=== PATIENT | male | born 1930 | race Caucasian/White ===

== ENCOUNTER 2019-04-04 14:42 | Inpatient (IN) | payer MEDICARE, OTHER ==
[2019-04-04 15:06] VITALS: BMI 37.0
--- NOTE | 2019-04-04 18:45 | History and Physical Report ---
History of Present Illnes - History of Present Illness Reason for Visit: Abdominal pain and acute pancreatitis History of Present Illness: This is an 89 year old male who is admitted to for skilled stay at [place]. He was admitted to [facility] on 03/30/19 due to acute abdominal pain and p ancreatitis with concern for a biliary source. There was concern for cholecystitis, and general Surgery (Dr. Arce) was consulted to see if emergent or non emergent cholecystectomy was indicated. She felt that he would likely need cholecystectomy, however not during that hospitalization and he is to follow up in her office about six weeks after discharge for evaluation for possible cholecystectomy. CT abdomen showed peripancreatic stranding, as well as lab work showing an elevated lipase (<500) and amylase (<2000). EGD showed gastritic/esophagitis. He was treated conservatively, and his bowel was rested. His diet was able to be slowly increased, although he was very unsteady on his feet, and he was transferred to our facility for care on discharge for skilled care with a view t meghna returning to home with his on discharge. - Past Medical History Cardiac: CAD, HTN, Hyperlipidemia CHEMISTRY ASSOCIATE: CVA (hemorrhagic), Peripheral neuropathy Gastrointestinal: GERD Psych: Anxiety, Depression Musculoskeletal: Osteoarthritis Renal/: Chronic renal insuff Endocrine: Diabetes, Hypothyroidism, obesity - Past Surgical History Past Surgical History: Other (PCI with stent, cardiac pacemaker placement, TKR bilateral, EGD, colonoscopy) - Past Social History Smoke: No Alcohol: None Drugs: None Lives: With Family - Health Maintenance Health Maintenance: Cholesterol Influenza Vaccine: Current for this Influenza Season Pneumonia Vaccine: Yes Resuscitation Status: Resusciation Status Resuscitation Status Full Code - Unable to Obtain History Unable to Obtain: No Review of Systems - Review of Systems Constitutional: Weakness, Malaise. negative: Fever, Chills Eyes: negative: pain, vision change ENT: negative: Ear Pain, Ear Discharge Respiratory: negative: Cough, Dry Cardiovascular: negative: Chest Pain Gastrointestinal: Abdominal Pain (improved). negative: Nausea, Vomiting Genitourinary: negative: Dysuria Musculoskeletal: negative: Neck Pain, Shoulder Pain, Arm Pain Skin: negative: Rash Neurological: Weakness, Incoordination, Change in Speech, Confusion - Medications/Allergies Allergies/Adverse Reactions: Allergies Allergy/AdvReac Type Severity Reaction Status Date / Time amlodipine Allergy Verified 04/04/19 14:45 Home Medications: Home Medications Acetaminophen [Tylenol] 650 mg PO Q4 PRN 04/04/19 Atorvastatin Calcium 40 mg PO DAILY 04/04/19 Bisacodyl 10 mg DAILY PRN 04/04/19 Bisacodyl [Laxative] 10 mg PO DAILY PRN 04/04/19 Buspirone HCl [Buspar] 10 mg PO BID 04/04/19 Carvedilol [Coreg] 3.125 mg PO BID 04/04/19 Fluticasone Propionate [Flonase Nasal [place]] 1 spray NS DAILY 04/04/19 Ipratropium/Albuterol Sulfate [Iprat-Albut 0.5-3(2.5) mg/3 ml] 1 vial NEB Q6 PRN 04/04/19 Pramipexole Di-HCl [Pramipexole ER] 3 mg PO HS 04/04/19 Tamsulosin HCl [Flomax] 0.4 mg PO DAILY 04/04/19 clonazePAM [Klonopin] 0.5 mg PO TID PRN 04/04/19 Exam - Exam Vital Signs: Vital Signs (72 hours) 04/04/19 04/04/19 14:44 14:58 Temperature 98 F 98 F Pulse Rate [ 74 74 Left] Respiratory 22 22 Rate Blood Pressure 132/70 132/70 [Left Arm] O2 Sat by Pulse 96 96 Oximetry General: Oriented to Person, Obese HEENT: Atraumatic, PERRLA Neck: No: Stridor, Rigidity Lungs: Clear to auscultation, Decreased Air Movement Cardiovascular: Irregularly Irregular, Atrial Fib Murmur: Systolic Murmur Heart Murmur Grade: II Abdomen: Normal bowel sounds, Soft, No tenderness, No hepatospenomegaly Genitourinary: No: Other Male Genitourinary: No: Other Female Genitourinary: No: Other Integumentary: Normal, Warm, Dry Extremities: No clubbing, No cyanosis, Other (trace ankle edema) Neurological: Generalized Weakness Psych/Mental Status: Mental status NL (at baseline) Assessment/Plan - Assessment/Plan (1) Acute pancreatitis Status: Acute Current Visit: Yes Assessment: Advance diet (2) History of CVA (cerebrovascular accident) Status: Acute Current Visit: Yes Assessment: Remote, continue off of anticoagulation due to hemorrhagic nature despite atrial fibrillation Follows with Dr. Schwartz (3) Anxiety Status: Acute Current Visit: Yes Assessment: Continue clonazepam (4) Chronic renal insufficiency, stage II (mild) Status: Acute Current Visit: Yes Assessment: Check CMP in am (5) Diabetes mellitus Status: Acute Current Visit: Yes Qualifiers: Diabetes mellitus type: type 2 Diabetes mellitus joint terminal attack controller insulin use: without fpc use Diabetes mellitus complication status: with neurologic complications Diabetes mellitus complication detail: with unspecified neuropathy Qualified Code(s): E11.40 - Type 2 diabetes mellitus with diabetic neuropathy, unspecified Assessment: JM, ACHS accuchbetty (6) CAD (coronary artery disease) Status: Acute Current Visit: Yes Qualifiers: Coronary Disease-Associated Artery/Lesion type: [place] artery [place] vs. transplanted heart: [place] heart Associated angina: without angina Qualified Code(s): I25.10 - Atherosclerotic heart disease of [place] coronary artery without angina pectoris (7) GERD (gastroesophageal reflux disease) Status: Acute Current Visit: Yes Assessment: Continue PPI (8) Debility Status: Acute Current Visit: Yes Assessment: PT/OT to evaluate and treat (9) Hypertension Status: Acute Current Visit: Yes Qualifiers: Hypertension type: essential hypertension Qualified Code(s): I10 - Essential (primary) hypertension VTE Assessment - RISK FACTOR SCORE VTE RISK FACTOR SCORES: AGE OVER 60 YEARS - RISK VTE MODERATE RISK: SCORE OF 2 (RISK PROXIMAL DVT 2-4%) PROPHYAXIS NEEDED (CRYS funes, pharmacologic anticoagulation contraindicated due to hemorrhagic CVA)
[2019-04-04] MEDS: PRAMIPEXOLE DI-HCL 0.5 MG TABLET PO SCH (20:49)
[2019-04-04] MEDS: busPIRone HCL 5 MG TABLET PO SCH (20:49)
[2019-04-04] MEDS: levETIRAcetam 500 MG TABLET PO SCH (20:50)
[2019-04-04] MEDS: ATORVASTATIN CALCIUM 20 MG TABLET PO SCH (20:50)
[2019-04-04] MEDS: CARVEDILOL 6.25 MG TABLET PO SCH (20:50)
[2019-04-04] MEDS: clonazePAM 0.5 MG TABLET PO SCH (20:50)
[2019-04-04] MEDS: OPTH OU SCH (20:51)
[2019-04-04] MEDS: TIMOLOL MALEATE 0.5% OU SCH (20:51)
[2019-04-04] MEDS: ACETAMINOPHEN 325 MG TABLET PO PRN (20:51)
[2019-04-04] MEDS: LATANOPROST 0.005% OPTH DROP OU SCH (20:52)
[2019-04-04] MEDS: IPRATROPIUM/ALBUTEROL SULFATE 3 ML AMPUL.NEB NEB SCH (21:21)
[2019-04-05] MEDS: LEVOTHYROXINE SODIUM 50 MCG TABLET PO SCH (05:42)
[2019-04-05] MEDS: ACETAMINOPHEN 325 MG TABLET PO PRN ×2 (05:42→20:40)
[2019-04-05] MEDS: PANTOPRAZOLE SODIUM 40 MG TABLET.DR PO SCH (05:42)
[2019-04-05 06:52] LABS: BASOPHILS % 0.4 % (0.0-1.5); NEUTROPHILS # 4.1 # k/uL (1.4-7.7)
[2019-04-05 06:53] LABS: eGFR (Non-African) > 60
[2019-04-05] MEDS ORDERED: TAMSULOSIN HCL 0.4 MG CAP.ER.24H PO ONE (08:18)
[2019-04-05] MEDS ORDERED: IPRATROPIUM/ALBUTEROL SULFATE 3 ML AMPUL.NEB NEB ONE (08:18)
[2019-04-05] MEDS ORDERED: busPIRone HCL 5 MG TABLET PO ONE (08:19)
[2019-04-05] MEDS ORDERED: clonazePAM 0.5 MG TABLET PO ONE (08:19)
[2019-04-05] MEDS ORDERED: levETIRAcetam 500 MG TABLET PO ONE (08:19)
[2019-04-05] MEDS ORDERED: CARVEDILOL 6.25 MG TABLET PO ONE (08:20)
[2019-04-05] MEDS ORDERED: BETHANECHOL CHLORIDE 5 MG TABLET PO ONE (08:20)
[2019-04-05] MEDS: FLUTICASONE PROPIONATE 120 SPRAY/16 GR BOTTLE IEN SCH (08:51)
[2019-04-05] MEDS: busPIRone HCL 5 MG TABLET PO SCH ×2 (08:52→20:39)
[2019-04-05] MEDS: clonazePAM 0.5 MG TABLET PO SCH ×3 (08:52→17:35)
[2019-04-05] MEDS: levETIRAcetam 500 MG TABLET PO SCH ×3 (08:52→17:35)
[2019-04-05] MEDS: ASPIRIN EC 81 MG TABLET.DR PO SCH (08:53)
[2019-04-05] MEDS: TAMSULOSIN HCL 0.4 MG CAP.ER.24H PO SCH ×2 (08:53→20:39)
[2019-04-05] MEDS: CARVEDILOL 6.25 MG TABLET PO SCH ×2 (08:54→17:35)
[2019-04-05] MEDS ORDERED: TAMSULOSIN HCL 0.4 MG CAP.ER.24H PO SCH (09:00)
[2019-04-05] MEDS: IPRATROPIUM/ALBUTEROL SULFATE 3 ML AMPUL.NEB NEB SCH ×4 (09:00→20:40)
[2019-04-05] MEDS: BISACODYL 5 MG TABLET.DR PO SCH (10:51)
[2019-04-05] MEDS ORDERED: INSULIN ASPART 100 UNIT/ML INSULN.PEN SQ SCH (12:00)
[2019-04-05] MEDS: INSULIN ASPART 100 UNIT/ML INSULN.PEN SQ SCH ×2 (16:44→20:40)
[2019-04-05] MEDS: PRAMIPEXOLE DI-HCL 0.5 MG TABLET PO SCH (20:39)
[2019-04-05] MEDS: ATORVASTATIN CALCIUM 20 MG TABLET PO SCH (20:39)
[2019-04-05] MEDS: OPTH OU SCH (20:40)
[2019-04-05] MEDS: TIMOLOL MALEATE 0.5% OU SCH (20:40)
[2019-04-05] MEDS: LATANOPROST 0.005% OPTH DROP OU SCH (20:40)
[2019-04-06] MEDS: ACETAMINOPHEN 325 MG TABLET PO PRN ×2 (00:20→07:42)
[2019-04-06] MEDS: PANTOPRAZOLE SODIUM 40 MG TABLET.DR PO SCH (05:22)
[2019-04-06] MEDS: LEVOTHYROXINE SODIUM 50 MCG TABLET PO SCH (05:22)
[2019-04-06] MEDS: INSULIN ASPART 100 UNIT/ML INSULN.PEN SQ SCH ×4 (06:21→20:40)
[2019-04-06] MEDS: busPIRone HCL 5 MG TABLET PO SCH ×2 (08:34→20:27)
[2019-04-06] MEDS: BISACODYL 5 MG TABLET.DR PO SCH (08:34)
[2019-04-06] MEDS: ASPIRIN EC 81 MG TABLET.DR PO SCH (08:34)
[2019-04-06] MEDS: CARVEDILOL 6.25 MG TABLET PO SCH ×2 (08:34→17:27)
[2019-04-06] MEDS: TAMSULOSIN HCL 0.4 MG CAP.ER.24H PO SCH ×2 (08:35→20:28)
[2019-04-06] MEDS: clonazePAM 0.5 MG TABLET PO SCH ×3 (08:35→21:19)
[2019-04-06] MEDS: levETIRAcetam 500 MG TABLET PO SCH ×3 (08:35→17:27)
[2019-04-06] MEDS: FLUTICASONE PROPIONATE 120 SPRAY/16 GR BOTTLE IEN SCH (08:35)
[2019-04-06] MEDS: IPRATROPIUM/ALBUTEROL SULFATE 3 ML AMPUL.NEB NEB SCH ×4 (09:00→21:15)
[2019-04-06] MEDS: ATORVASTATIN CALCIUM 20 MG TABLET PO SCH (20:28)
[2019-04-06] MEDS: PRAMIPEXOLE DI-HCL 0.5 MG TABLET PO SCH (20:29)
[2019-04-06] MEDS: TIMOLOL MALEATE 0.5% OU SCH (20:31)
[2019-04-06] MEDS: LATANOPROST 0.005% OPTH DROP OU SCH (20:31)
[2019-04-06] MEDS: OPTH OU SCH (20:31)
[2019-04-07] MEDS: LEVOTHYROXINE SODIUM 50 MCG TABLET PO SCH (05:52)
[2019-04-07] MEDS: PANTOPRAZOLE SODIUM 40 MG TABLET.DR PO SCH (05:53)
[2019-04-07] MEDS: INSULIN ASPART 100 UNIT/ML INSULN.PEN SQ SCH ×4 (08:23→21:42)
[2019-04-07] MEDS: busPIRone HCL 5 MG TABLET PO SCH ×2 (08:25→21:40)
[2019-04-07] MEDS: BISACODYL 5 MG TABLET.DR PO SCH (08:26)
[2019-04-07] MEDS: ASPIRIN EC 81 MG TABLET.DR PO SCH (08:26)
[2019-04-07] MEDS: TAMSULOSIN HCL 0.4 MG CAP.ER.24H PO SCH ×2 (08:27→21:40)
[2019-04-07] MEDS: clonazePAM 0.5 MG TABLET PO SCH ×3 (08:27→21:41)
[2019-04-07] MEDS: levETIRAcetam 500 MG TABLET PO SCH ×3 (08:28→17:46)
[2019-04-07] MEDS: CARVEDILOL 6.25 MG TABLET PO SCH ×2 (08:28→17:46)
[2019-04-07] MEDS: FLUTICASONE PROPIONATE 120 SPRAY/16 GR BOTTLE IEN SCH (08:28)
[2019-04-07] MEDS: IPRATROPIUM/ALBUTEROL SULFATE 3 ML AMPUL.NEB NEB SCH ×4 (08:31→21:44)
[2019-04-07] MEDS: ATORVASTATIN CALCIUM 20 MG TABLET PO SCH (21:41)
[2019-04-07] MEDS: PRAMIPEXOLE DI-HCL 0.5 MG TABLET PO SCH (21:41)
[2019-04-07] MEDS: LATANOPROST 0.005% OPTH DROP OU SCH (21:43)
[2019-04-07] MEDS: TIMOLOL MALEATE 0.5% OU SCH (21:43)
[2019-04-07] MEDS: OPTH OU SCH (21:43)
[2019-04-08] MEDS: ACETAMINOPHEN 325 MG TABLET PO PRN ×3 (03:22→18:25)
[2019-04-08] MEDS: LEVOTHYROXINE SODIUM 50 MCG TABLET PO SCH (06:10)
[2019-04-08] MEDS: PANTOPRAZOLE SODIUM 40 MG TABLET.DR PO SCH (06:10)
[2019-04-08] MEDS: INSULIN ASPART 100 UNIT/ML INSULN.PEN SQ SCH ×4 (07:21→20:49)
[2019-04-08] MEDS: levETIRAcetam 500 MG TABLET PO SCH ×3 (08:32→17:33)
[2019-04-08] MEDS: busPIRone HCL 5 MG TABLET PO SCH ×2 (08:32→20:41)
[2019-04-08] MEDS: TAMSULOSIN HCL 0.4 MG CAP.ER.24H PO SCH ×2 (08:32→20:43)
[2019-04-08] MEDS: clonazePAM 0.5 MG TABLET PO SCH ×3 (08:32→20:42)
[2019-04-08] MEDS: ASPIRIN EC 81 MG TABLET.DR PO SCH (08:32)
[2019-04-08] MEDS: FLUTICASONE PROPIONATE 120 SPRAY/16 GR BOTTLE IEN SCH (08:32)
[2019-04-08] MEDS: BISACODYL 5 MG TABLET.DR PO SCH (08:32)
[2019-04-08] MEDS: CARVEDILOL 6.25 MG TABLET PO SCH ×2 (08:32→17:33)
[2019-04-08] MEDS: IPRATROPIUM/ALBUTEROL SULFATE 3 ML AMPUL.NEB NEB SCH ×4 (09:46→20:51)
[2019-04-08] MEDS: PRAMIPEXOLE DI-HCL 0.5 MG TABLET PO SCH (20:40)
[2019-04-08] MEDS: ATORVASTATIN CALCIUM 20 MG TABLET PO SCH (20:43)
[2019-04-08] MEDS: LATANOPROST 0.005% OPTH DROP OU SCH (20:44)
[2019-04-08] MEDS: TIMOLOL MALEATE 0.5% OU SCH (20:44)
[2019-04-08] MEDS: OPTH OU SCH (20:44)
[2019-04-09] MEDS: PANTOPRAZOLE SODIUM 40 MG TABLET.DR PO SCH (05:39)
[2019-04-09] MEDS: LEVOTHYROXINE SODIUM 50 MCG TABLET PO SCH (05:39)
[2019-04-09] MEDS: ACETAMINOPHEN 325 MG TABLET PO PRN ×2 (05:39→20:17)
[2019-04-09] MEDS: INSULIN ASPART 100 UNIT/ML INSULN.PEN SQ SCH ×4 (08:00→20:19)
[2019-04-09] MEDS: BISACODYL 5 MG TABLET.DR PO SCH (08:42)
[2019-04-09] MEDS: CARVEDILOL 6.25 MG TABLET PO SCH ×2 (08:42→17:16)
[2019-04-09] MEDS: clonazePAM 0.5 MG TABLET PO SCH ×3 (08:43→20:17)
[2019-04-09] MEDS: TAMSULOSIN HCL 0.4 MG CAP.ER.24H PO SCH ×2 (08:43→20:17)
[2019-04-09] MEDS: busPIRone HCL 5 MG TABLET PO SCH ×2 (08:43→20:16)
[2019-04-09] MEDS: ASPIRIN EC 81 MG TABLET.DR PO SCH (08:43)
[2019-04-09] MEDS: levETIRAcetam 500 MG TABLET PO SCH ×3 (08:43→17:16)
[2019-04-09] MEDS: FLUTICASONE PROPIONATE 120 SPRAY/16 GR BOTTLE IEN SCH (08:44)
[2019-04-09] MEDS: IPRATROPIUM/ALBUTEROL SULFATE 3 ML AMPUL.NEB NEB SCH (08:45)
[2019-04-09] MEDS: ATORVASTATIN CALCIUM 20 MG TABLET PO SCH (20:16)
[2019-04-09] MEDS: PRAMIPEXOLE DI-HCL 0.5 MG TABLET PO SCH (20:22)
[2019-04-09] MEDS: LATANOPROST 0.005% OPTH DROP OU SCH (20:23)
[2019-04-09] MEDS: OPTH OU SCH (20:23)
[2019-04-09] MEDS: TIMOLOL MALEATE 0.5% OU SCH (20:23)
[2019-04-10] MEDS: ACETAMINOPHEN 325 MG TABLET PO PRN ×3 (00:12→20:35)
[2019-04-10] MEDS: LEVOTHYROXINE SODIUM 50 MCG TABLET PO SCH (05:27)
[2019-04-10] MEDS: PANTOPRAZOLE SODIUM 40 MG TABLET.DR PO SCH (05:27)
[2019-04-10] MEDS: INSULIN ASPART 100 UNIT/ML INSULN.PEN SQ SCH ×4 (08:02→21:18)
[2019-04-10] MEDS: TAMSULOSIN HCL 0.4 MG CAP.ER.24H PO SCH ×2 (08:03→20:36)
[2019-04-10] MEDS: BISACODYL 5 MG TABLET.DR PO SCH (08:04)
[2019-04-10] MEDS: busPIRone HCL 5 MG TABLET PO SCH ×2 (08:04→21:46)
[2019-04-10] MEDS: levETIRAcetam 500 MG TABLET PO SCH ×3 (08:04→17:02)
[2019-04-10] MEDS: CARVEDILOL 6.25 MG TABLET PO SCH ×2 (08:04→17:02)
[2019-04-10] MEDS: ASPIRIN EC 81 MG TABLET.DR PO SCH (08:04)
[2019-04-10] MEDS: clonazePAM 0.5 MG TABLET PO SCH ×3 (08:04→20:36)
[2019-04-10] MEDS: FLUTICASONE PROPIONATE 120 SPRAY/16 GR BOTTLE IEN SCH (09:23)
[2019-04-10] MEDS: PRAMIPEXOLE DI-HCL 0.5 MG TABLET PO SCH (20:35)
[2019-04-10] MEDS: ATORVASTATIN CALCIUM 20 MG TABLET PO SCH (20:36)
[2019-04-10] MEDS: LATANOPROST 0.005% OPTH DROP OU SCH (21:18)
[2019-04-10] MEDS: OPTH OU SCH (21:18)
[2019-04-10] MEDS: TIMOLOL MALEATE 0.5% OU SCH (21:18)
[2019-04-11] MEDS: PANTOPRAZOLE SODIUM 40 MG TABLET.DR PO SCH (05:41)
[2019-04-11] MEDS: LEVOTHYROXINE SODIUM 50 MCG TABLET PO SCH (05:42)
[2019-04-11] MEDS: INSULIN ASPART 100 UNIT/ML INSULN.PEN SQ SCH ×4 (07:19→20:09)
[2019-04-11] MEDS: TAMSULOSIN HCL 0.4 MG CAP.ER.24H PO SCH ×2 (08:35→20:03)
[2019-04-11] MEDS: levETIRAcetam 500 MG TABLET PO SCH ×3 (08:35→17:43)
[2019-04-11] MEDS: FLUTICASONE PROPIONATE 120 SPRAY/16 GR BOTTLE IEN SCH (08:35)
[2019-04-11] MEDS: CARVEDILOL 6.25 MG TABLET PO SCH ×2 (08:36→17:43)
[2019-04-11] MEDS: ASPIRIN EC 81 MG TABLET.DR PO SCH (08:36)
[2019-04-11] MEDS: BISACODYL 5 MG TABLET.DR PO SCH (08:36)
[2019-04-11] MEDS: clonazePAM 0.5 MG TABLET PO SCH ×3 (08:36→20:04)
[2019-04-11] MEDS: busPIRone HCL 5 MG TABLET PO SCH ×2 (08:36→20:03)
[2019-04-11] MEDS: ACETAMINOPHEN 325 MG TABLET PO PRN (16:16)
[2019-04-11] MEDS: MELATONIN 3 MG TABLET PO SCH (20:03)
[2019-04-11] MEDS: ATORVASTATIN CALCIUM 20 MG TABLET PO SCH (20:03)
[2019-04-11] MEDS: PRAMIPEXOLE DI-HCL 0.5 MG TABLET PO SCH (20:03)
[2019-04-11] MEDS: TIMOLOL MALEATE 0.5% OU SCH (20:06)
[2019-04-11] MEDS: OPTH OU SCH (20:06)
[2019-04-11] MEDS: LATANOPROST 0.005% OPTH DROP OU SCH (20:06)
[2019-04-12] MEDS: PANTOPRAZOLE SODIUM 40 MG TABLET.DR PO SCH (05:45)
[2019-04-12] MEDS: LEVOTHYROXINE SODIUM 50 MCG TABLET PO SCH (05:45)
[2019-04-12] MEDS: INSULIN ASPART 100 UNIT/ML INSULN.PEN SQ SCH ×4 (07:08→21:14)
[2019-04-12] MEDS: busPIRone HCL 5 MG TABLET PO SCH ×2 (08:10→22:37)
[2019-04-12] MEDS: ASPIRIN EC 81 MG TABLET.DR PO SCH (08:11)
[2019-04-12] MEDS: CARVEDILOL 6.25 MG TABLET PO SCH ×3 (08:11→17:50)
[2019-04-12] MEDS: levETIRAcetam 500 MG TABLET PO SCH ×4 (08:11→17:53)
[2019-04-12] MEDS: BISACODYL 5 MG TABLET.DR PO SCH (08:12)
[2019-04-12] MEDS: TAMSULOSIN HCL 0.4 MG CAP.ER.24H PO SCH ×2 (08:13→22:37)
[2019-04-12] MEDS: clonazePAM 0.5 MG TABLET PO SCH ×3 (08:13→22:37)
[2019-04-12] MEDS: ACETAMINOPHEN 325 MG TABLET PO PRN ×2 (08:13→15:10)
[2019-04-12] MEDS: FLUTICASONE PROPIONATE 120 SPRAY/16 GR BOTTLE IEN SCH (08:16)
[2019-04-12] MEDS: hydrOXYzine HCL 25 MG TABLET PO PRN (17:51)
[2019-04-12] MEDS: PRAMIPEXOLE DI-HCL 0.5 MG TABLET PO SCH (22:35)
[2019-04-12] MEDS: ATORVASTATIN CALCIUM 20 MG TABLET PO SCH (22:36)
[2019-04-12] MEDS: MELATONIN 3 MG TABLET PO SCH (22:37)
[2019-04-12] MEDS: LATANOPROST 0.005% OPTH DROP OU SCH (22:40)
[2019-04-12] MEDS: OPTH OU SCH (22:59)
[2019-04-12] MEDS: TIMOLOL MALEATE 0.5% OU SCH (22:59)
[2019-04-13] MEDS: PANTOPRAZOLE SODIUM 40 MG TABLET.DR PO SCH (05:33)
[2019-04-13] MEDS: LEVOTHYROXINE SODIUM 50 MCG TABLET PO SCH (05:33)
[2019-04-13] MEDS: INSULIN ASPART 100 UNIT/ML INSULN.PEN SQ SCH ×4 (08:03→22:28)
[2019-04-13] MEDS: clonazePAM 0.5 MG TABLET PO SCH ×3 (08:32→21:09)
[2019-04-13] MEDS: BISACODYL 5 MG TABLET.DR PO SCH (08:32)
[2019-04-13] MEDS: TAMSULOSIN HCL 0.4 MG CAP.ER.24H PO SCH ×2 (08:32→21:09)
[2019-04-13] MEDS: levETIRAcetam 500 MG TABLET PO SCH ×3 (08:32→17:27)
[2019-04-13] MEDS: ASPIRIN EC 81 MG TABLET.DR PO SCH (08:32)
[2019-04-13] MEDS: CARVEDILOL 6.25 MG TABLET PO SCH ×2 (08:32→17:27)
[2019-04-13] MEDS: busPIRone HCL 5 MG TABLET PO SCH ×2 (08:32→21:07)
[2019-04-13] MEDS: ACETAMINOPHEN 325 MG TABLET PO PRN ×2 (08:34→17:27)
[2019-04-13] MEDS: FLUTICASONE PROPIONATE 120 SPRAY/16 GR BOTTLE IEN SCH (08:39)
[2019-04-13] MEDS: PRAMIPEXOLE DI-HCL 0.5 MG TABLET PO SCH (21:08)
[2019-04-13] MEDS: ATORVASTATIN CALCIUM 20 MG TABLET PO SCH (21:08)
[2019-04-13] MEDS: MELATONIN 3 MG TABLET PO SCH (21:09)
[2019-04-13] MEDS: hydrOXYzine HCL 25 MG TABLET PO PRN (21:09)
[2019-04-13] MEDS: LATANOPROST 0.005% OPTH DROP OU SCH (21:40)
[2019-04-13] MEDS: TIMOLOL MALEATE 0.5% OU SCH (21:50)
[2019-04-13] MEDS: OPTH OU SCH (21:50)
[2019-04-14] MEDS: PANTOPRAZOLE SODIUM 40 MG TABLET.DR PO SCH (06:54)
[2019-04-14] MEDS: LEVOTHYROXINE SODIUM 50 MCG TABLET PO SCH (06:54)
[2019-04-14] MEDS: BISACODYL 5 MG TABLET.DR PO SCH (08:52)
[2019-04-14] MEDS: ASPIRIN EC 81 MG TABLET.DR PO SCH (08:52)
[2019-04-14] MEDS: CARVEDILOL 6.25 MG TABLET PO SCH ×2 (08:52→17:37)
[2019-04-14] MEDS: clonazePAM 0.5 MG TABLET PO SCH ×3 (08:53→21:23)
[2019-04-14] MEDS: busPIRone HCL 5 MG TABLET PO SCH ×2 (08:53→21:23)
[2019-04-14] MEDS: levETIRAcetam 500 MG TABLET PO SCH ×3 (08:54→17:37)
[2019-04-14] MEDS: TAMSULOSIN HCL 0.4 MG CAP.ER.24H PO SCH ×2 (08:54→21:24)
[2019-04-14] MEDS: ACETAMINOPHEN 325 MG TABLET PO PRN (08:54)
[2019-04-14] MEDS: FLUTICASONE PROPIONATE 120 SPRAY/16 GR BOTTLE IEN SCH (08:57)
[2019-04-14] MEDS: INSULIN ASPART 100 UNIT/ML INSULN.PEN SQ SCH ×4 (10:23→21:25)
[2019-04-14 11:32] LABS: APPEARANCE,URINE CLEAR (CLEAR); COLOR,URINE YELLOW (YELLOW); OCCULT BLOOD,URINE NEGATIVE (NEGATIVE); UROBILINOGEN URINE 0.2 Eu (0.2-1.0)
[2019-04-14] MEDS: POLYETHYLENE GLYCOL 3350 17 GM POWD.PACK PO SCH (12:33)
[2019-04-14] MEDS: ATORVASTATIN CALCIUM 20 MG TABLET PO SCH (21:23)
[2019-04-14] MEDS: PRAMIPEXOLE DI-HCL 0.5 MG TABLET PO SCH (21:23)
[2019-04-14] MEDS: MELATONIN 3 MG TABLET PO SCH (21:23)
[2019-04-14] MEDS: TIMOLOL MALEATE 0.5% OU SCH (21:24)
[2019-04-14] MEDS: hydrOXYzine HCL 25 MG TABLET PO PRN (21:24)
[2019-04-14] MEDS: OPTH OU SCH (21:24)
[2019-04-14] MEDS: LATANOPROST 0.005% OPTH DROP OU SCH (21:24)
[2019-04-15] MEDS: PANTOPRAZOLE SODIUM 40 MG TABLET.DR PO SCH (07:00)
[2019-04-15] MEDS: LEVOTHYROXINE SODIUM 50 MCG TABLET PO SCH (07:00)
[2019-04-15] MEDS: INSULIN ASPART 100 UNIT/ML INSULN.PEN SQ SCH ×4 (07:58→20:21)
[2019-04-15] MEDS: ACETAMINOPHEN 325 MG TABLET PO PRN ×3 (08:17→20:19)
[2019-04-15] MEDS: busPIRone HCL 5 MG TABLET PO SCH ×2 (08:18→20:18)
[2019-04-15] MEDS: TAMSULOSIN HCL 0.4 MG CAP.ER.24H PO SCH ×2 (08:18→20:19)
[2019-04-15] MEDS: BISACODYL 5 MG TABLET.DR PO SCH (08:18)
[2019-04-15] MEDS: ASPIRIN EC 81 MG TABLET.DR PO SCH (08:18)
[2019-04-15] MEDS: FLUTICASONE PROPIONATE 120 SPRAY/16 GR BOTTLE IEN SCH (08:19)
[2019-04-15] MEDS: CARVEDILOL 6.25 MG TABLET PO SCH ×2 (08:19→17:47)
[2019-04-15] MEDS: levETIRAcetam 500 MG TABLET PO SCH ×3 (08:19→17:47)
[2019-04-15] MEDS: clonazePAM 0.5 MG TABLET PO SCH ×3 (08:19→20:18)
[2019-04-15] MEDS: POLYETHYLENE GLYCOL 3350 17 GM POWD.PACK PO SCH (10:57)
[2019-04-15 13:55] LABS: eGFR (Non-African) 51
[2019-04-15] MEDS: hydrOXYzine HCL 25 MG TABLET PO PRN (20:18)
[2019-04-15] MEDS: MELATONIN 3 MG TABLET PO SCH (20:19)
[2019-04-15] MEDS: PRAMIPEXOLE DI-HCL 0.5 MG TABLET PO SCH (20:19)
[2019-04-15] MEDS: LATANOPROST 0.005% OPTH DROP OU SCH (20:20)
[2019-04-15] MEDS: ATORVASTATIN CALCIUM 20 MG TABLET PO SCH (20:20)
[2019-04-15] MEDS: OPTH OU SCH (20:20)
[2019-04-15] MEDS: TIMOLOL MALEATE 0.5% OU SCH (20:20)
[2019-04-16] MEDS: PANTOPRAZOLE SODIUM 40 MG TABLET.DR PO SCH (05:51)
[2019-04-16] MEDS: LEVOTHYROXINE SODIUM 50 MCG TABLET PO SCH (05:51)
[2019-04-16] MEDS: CARVEDILOL 6.25 MG TABLET PO SCH ×2 (08:42→17:30)
[2019-04-16] MEDS: clonazePAM 0.5 MG TABLET PO SCH ×3 (08:42→20:28)
[2019-04-16] MEDS: busPIRone HCL 5 MG TABLET PO SCH ×2 (08:43→20:27)
[2019-04-16] MEDS: BISACODYL 5 MG TABLET.DR PO SCH (08:43)
[2019-04-16] MEDS: levETIRAcetam 500 MG TABLET PO SCH ×3 (08:43→17:30)
[2019-04-16] MEDS: ASPIRIN EC 81 MG TABLET.DR PO SCH (08:43)
[2019-04-16] MEDS: FLUTICASONE PROPIONATE 120 SPRAY/16 GR BOTTLE IEN SCH (08:44)
[2019-04-16] MEDS: TAMSULOSIN HCL 0.4 MG CAP.ER.24H PO SCH ×2 (08:44→20:28)
[2019-04-16] MEDS: POLYETHYLENE GLYCOL 3350 17 GM POWD.PACK PO SCH (10:51)
[2019-04-16] MEDS: ACETAMINOPHEN 325 MG TABLET PO PRN ×2 (10:51→20:25)
[2019-04-16] MEDS: INSULIN ASPART 100 UNIT/ML INSULN.PEN SQ SCH ×3 (19:35→19:37)
[2019-04-16] MEDS: PRAMIPEXOLE DI-HCL 0.5 MG TABLET PO SCH (20:26)
[2019-04-16] MEDS: ATORVASTATIN CALCIUM 20 MG TABLET PO SCH (20:27)
[2019-04-16] MEDS: MELATONIN 3 MG TABLET PO SCH (20:27)
[2019-04-16] MEDS: hydrOXYzine HCL 25 MG TABLET PO PRN (20:28)
[2019-04-16] MEDS: LATANOPROST 0.005% OPTH DROP OU SCH (20:29)
[2019-04-16] MEDS: TIMOLOL MALEATE 0.5% OU SCH (20:29)
[2019-04-16] MEDS: OPTH OU SCH (20:29)
[2019-04-17] MEDS: PANTOPRAZOLE SODIUM 40 MG TABLET.DR PO SCH (05:59)
[2019-04-17] MEDS: LEVOTHYROXINE SODIUM 50 MCG TABLET PO SCH (05:59)
[2019-04-17] MEDS: INSULIN ASPART 100 UNIT/ML INSULN.PEN SQ SCH ×4 (07:30→21:31)
[2019-04-17] MEDS: CARVEDILOL 6.25 MG TABLET PO SCH ×2 (08:55→17:57)
[2019-04-17] MEDS: busPIRone HCL 5 MG TABLET PO SCH ×2 (09:13→21:25)
[2019-04-17] MEDS: BISACODYL 5 MG TABLET.DR PO SCH (09:14)
[2019-04-17] MEDS: ASPIRIN EC 81 MG TABLET.DR PO SCH (09:14)
[2019-04-17] MEDS: levETIRAcetam 500 MG TABLET PO SCH ×3 (09:14→17:57)
[2019-04-17] MEDS: clonazePAM 0.5 MG TABLET PO SCH ×3 (09:14→21:23)
[2019-04-17] MEDS: TAMSULOSIN HCL 0.4 MG CAP.ER.24H PO SCH ×2 (09:14→21:26)
[2019-04-17] MEDS: FLUTICASONE PROPIONATE 120 SPRAY/16 GR BOTTLE IEN SCH (09:17)
[2019-04-17] MEDS: ACETAMINOPHEN 325 MG TABLET PO PRN ×3 (10:26→22:50)
[2019-04-17] MEDS: POLYETHYLENE GLYCOL 3350 17 GM POWD.PACK PO SCH (10:26)
[2019-04-17] MEDS: PRAMIPEXOLE DI-HCL 0.5 MG TABLET PO SCH (21:23)
[2019-04-17] MEDS: TIMOLOL MALEATE 0.5% OU SCH (21:24)
[2019-04-17] MEDS: OPTH OU SCH (21:24)
[2019-04-17] MEDS: ATORVASTATIN CALCIUM 20 MG TABLET PO SCH (21:25)
[2019-04-17] MEDS: MELATONIN 3 MG TABLET PO SCH (21:25)
[2019-04-17] MEDS: hydrOXYzine HCL 25 MG TABLET PO PRN (21:26)
[2019-04-17] MEDS: LATANOPROST 0.005% OPTH DROP OU SCH (21:31)
[2019-04-18] MEDS: LEVOTHYROXINE SODIUM 50 MCG TABLET PO SCH (06:11)
[2019-04-18] MEDS: PANTOPRAZOLE SODIUM 40 MG TABLET.DR PO SCH (06:11)
[2019-04-18 06:32] LABS: APPEARANCE,URINE CLEAR (CLEAR); COLOR,URINE YELLOW (YELLOW); OCCULT BLOOD,URINE TRACE-LYSED (NEGATIVE); PH URINE 5.5 (5.0 - 8.0); UROBILINOGEN URINE 0.2 Eu (0.2-1.0)
[2019-04-18] MEDS: INSULIN ASPART 100 UNIT/ML INSULN.PEN SQ SCH ×4 (07:34→22:24)
[2019-04-18] MEDS: ACETAMINOPHEN 325 MG TABLET PO PRN ×3 (08:36→20:43)
[2019-04-18] MEDS: busPIRone HCL 5 MG TABLET PO SCH ×2 (08:36→20:43)
[2019-04-18] MEDS: ASPIRIN EC 81 MG TABLET.DR PO SCH (08:37)
[2019-04-18] MEDS: BISACODYL 5 MG TABLET.DR PO SCH (08:37)
[2019-04-18] MEDS: TAMSULOSIN HCL 0.4 MG CAP.ER.24H PO SCH ×2 (08:37→20:42)
[2019-04-18] MEDS: levETIRAcetam 500 MG TABLET PO SCH ×3 (08:38→17:51)
[2019-04-18] MEDS: clonazePAM 0.5 MG TABLET PO SCH ×3 (08:38→20:43)
[2019-04-18] MEDS: FLUTICASONE PROPIONATE 120 SPRAY/16 GR BOTTLE IEN SCH (08:38)
[2019-04-18] MEDS: CARVEDILOL 6.25 MG TABLET PO SCH ×2 (08:38→17:51)
[2019-04-18] MEDS: POLYETHYLENE GLYCOL 3350 17 GM POWD.PACK PO SCH (11:39)
[2019-04-18] MEDS: hydrOXYzine HCL 25 MG TABLET PO PRN (20:42)
[2019-04-18] MEDS: ATORVASTATIN CALCIUM 20 MG TABLET PO SCH (20:42)
[2019-04-18] MEDS: PRAMIPEXOLE DI-HCL 0.5 MG TABLET PO SCH (20:43)
[2019-04-18] MEDS: MELATONIN 3 MG TABLET PO SCH (20:43)
[2019-04-18] MEDS: TIMOLOL MALEATE 0.5% OU SCH (20:44)
[2019-04-18] MEDS: OPTH OU SCH (20:44)
[2019-04-18] MEDS: LATANOPROST 0.005% OPTH DROP OU SCH (20:44)
[2019-04-19] MEDS: LEVOTHYROXINE SODIUM 50 MCG TABLET PO SCH (06:20)
[2019-04-19] MEDS: PANTOPRAZOLE SODIUM 40 MG TABLET.DR PO SCH (06:20)
[2019-04-19] MEDS: INSULIN ASPART 100 UNIT/ML INSULN.PEN SQ SCH ×4 (07:12→20:04)
[2019-04-19] MEDS: CARVEDILOL 6.25 MG TABLET PO SCH ×2 (08:10→18:24)
[2019-04-19] MEDS: busPIRone HCL 5 MG TABLET PO SCH ×2 (08:10→19:47)
[2019-04-19] MEDS: ASPIRIN EC 81 MG TABLET.DR PO SCH (08:11)
[2019-04-19] MEDS: TAMSULOSIN HCL 0.4 MG CAP.ER.24H PO SCH ×2 (08:11→19:48)
[2019-04-19] MEDS: FLUTICASONE PROPIONATE 120 SPRAY/16 GR BOTTLE IEN SCH (08:11)
[2019-04-19] MEDS: levETIRAcetam 500 MG TABLET PO SCH ×3 (08:11→18:25)
[2019-04-19] MEDS: clonazePAM 0.5 MG TABLET PO SCH ×3 (08:12→19:48)
[2019-04-19] MEDS: ACETAMINOPHEN 325 MG TABLET PO PRN ×2 (08:12→19:48)
[2019-04-19] MEDS: BISACODYL 5 MG TABLET.DR PO SCH (08:21)
[2019-04-19] MEDS: POLYETHYLENE GLYCOL 3350 17 GM POWD.PACK PO SCH (11:29)
--- NOTE | 2019-04-19 16:23 | Inpatient Progress Note ---
Subjective - Required Recertification Statement I anticipate X number of days because-include discharge plan: 4 - Review of Systems Events since last encounter: Vinod did a home visit today, and that went fairly well. He will definitely need home health on discharge. He is without any new c/o today other than stating that he has a difficult time getting his urine to pass. 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 I am having nursing do a post void residual at this time. General: Malaise. Denies: Chills, Night Sweats HEENT: Denies: Head Aches Pulmonary: Denies: Dyspnea Cardiovascular: Denies: Chest Pain Gastrointestinal: Denies: Nausea, Vomiting, Abdominal Pain Genitourinary: Retention Musculoskeletal: Denies: Neck Pain, Shoulder Pain Neurological: Weakness, Confusion Objective - Exam Vitals and I&O: Vital Signs Temp 98.6 F 04/19/19 09:00 Pulse 84 04/19/19 09:00 Resp 18 04/19/19 09:00 BP 144/83 04/19/19 09:00 Pulse Ox 94 04/19/19 09:00 Intake & Output 04/18/19 04/19/19 04/19/19 23:59 11:59 23:59 Intake Total 720 360 240 Output Total 5 Balance 715 360 240 Intake: Oral 720 360 240 Output: Urine 5 Other: Voiding Method Toilet Toilet # Voids 3 # Bowel Movements 1 General: Oriented to Person, Obese HEENT: Atraumatic, PERRLA, EOMI Neck: Supple, No JVD Lungs: Clear to auscultation Cardiovascular: Regular rate, Normal S1, Normal S2 Abdomen: Normal bowel sounds, Soft, No tenderness Extremities: No: No clubbing, No cyanosis Skin: Normal, [place] Neurological: Normal speech. No: Normal gait Psych/Mental Status: No: Intact Judgment - Results Results: Laboratory Results WBC 6.90 K/ul (4.00-12.00) 04/15/19 13:20 RBC 4.96 M/ul (3.90-5.20) 04/15/19 13:20 Hgb 14.9 g/dL (12.0-18.0) 04/15/19 13:20 Hct 45.2 % (37.0-53.0) 04/15/19 13:20 MCV 91.0 fl (80.0-100.0) 04/15/19 13:20 MCH 30.0 pg (28.0-34.0) 04/15/19 13:20 MCHC 33.0 g/dL (30.0-36.0) 04/15/19 13:20 RDW 15.5 % (11.3-14.3) H 04/15/19 13:20 Plt Count 252 K/mm3 (130-400) 04/15/19 13:20 Neut % (Auto) 68.6 % (39.0-79.0) 04/05/19 06:00 Lymph % (Auto) 18.3 % (16.0-50.0) 04/05/19 06:00 [place] % (Auto) 8.3 % (0.0-11.0) 04/05/19 06:00 Eos % (Auto) 4.4 % (0.0-6.8) 04/05/19 06:00 Baso % (Auto) 0.4 % (0.0-1.5) 04/05/19 06:00 Neut # (Auto) 4.1 # k/uL (1.4-7.7) 04/05/19 06:00 Lymph # (Auto) 1.1 # k/uL (0.6-4.0) 04/05/19 06:00 [place] # (Auto) 0.5 # k/uL (0.0-0.9) 04/05/19 06:00 Eos # (Auto) 0.3 # k/uL (0.0-0.6) 04/05/19 06:00 Baso # (Auto) 0.0 # k/uL (0.0-0.5) 04/05/19 06:00 Sodium 141 mmol/L (137-145) 04/15/19 13:20 Potassium 4.1 mmol/L (3.5-5.1) 04/15/19 13:20 Chloride 102 mmol/L (98-107) 04/15/19 13:20 Carbon Dioxide 24 mmol/L (22-30) 04/15/19 13:20 Anion Gap 19.1 04/15/19 13:20 BUN 21 mg/dL (9-20) H 04/15/19 13:20 Creatinine 1.41 mg/dL (0.66-1.25) H 04/15/19 13:20 Estimated Creat Clear 58 04/15/19 13:20 Est GFR ( Amer) > 60 (60-) 04/15/19 13:20 Est GFR (Non-Af Amer) 51 (60-) L 04/15/19 13:20 Glucose 116 mg/dL (74-106) H 04/15/19 13:20 Calcium 9.0 mg/dL (8.4-10.2) 04/15/19 13:20 Total Bilirubin 0.5 mg/dL (0.2-1.3) 04/15/19 13:20 AST 30 U/L (15-46) 04/15/19 13:20 ALT 27 U/L (13-69) 04/15/19 13:20 Alkaline Phosphatase 82 U/L (38-126) 04/15/19 13:20 Total Protein 7.6 g/dL (6.3-8.2) 04/15/19 13:20 Albumin 4.2 g/dL (3.5-5.0) 04/15/19 13:20 Urine Color Yellow (YELLOW) 04/17/19 18:29 Urine Appearance Clear (CLEAR) 04/17/19 18:29 Urine pH 5.5 (5.0 - 8.0) 04/17/19 18:29 Ur Specific [place] 1.015 (1.010-1.030) 04/17/19 18:29 Urine Protein 2+ mg/dL (NEGATIVE) H 04/17/19 18:29 Urine Ketones Negative mg/dL (NEGATIVE) 04/17/19 18:29 Urine Occult Blood Trace-lysed (NEGATIVE) H 04/17/19 18:29 Urine Nitrite Negative (NEGATIVE) 04/17/19 18:29 Urine Bilirubin Negative (NEGATIVE) 04/17/19 18:29 Urine Urobilinogen 0.2 Eu (0.2-1.0) 04/17/19 18:29 Ur Leukocyte Esterase Negative (NEGATIVE) 04/17/19 18:29 Urine RBC Negative (0-2 HPF) 04/14/19 11:32 Urine WBC Negative (0-5 HPF) 04/14/19 11:32 Ur Squamous Epith Cells Moderate (NEG-FEW) H 04/14/19 11:32 Urine Bacteria Few (NEGATIVE) H 04/14/19 11:32 Urine Glucose Negative mg/dL (NEGATIVE) 04/17/19 18:29 Assessment/Plan - Assessment/Plan (1) Acute pancreatitis Status: Acute Current Visit: Yes Assessment: Resolved (2) History of CVA (cerebrovascular accident) Status: Acute Current Visit: Yes Assessment: With resultant memory deficits (3) Anxiety Status: Acute Current Visit: Yes Assessment: Continue clonazepam at current dose (4) Chronic renal insufficiency, stage II (mild) Status: Acute Current Visit: Yes Assessment: Stable, will check labs in am (5) Diabetes mellitus Status: Acute Current Visit: Yes Qualifiers: Diabetes mellitus type: type 2 Diabetes mellitus buttermaker insulin use: without snf use Diabetes mellitus complication status: with neurologic complications Diabetes mellitus complication detail: with unspecified darian ropathy Qualified Code(s): E11.40 - Type 2 diabetes mellitus with diabetic neuropathy, unspecified Assessment: Continue SSI (6) CAD (coronary artery disease) Status: Acute Current Visit: Yes Qualifiers: Coronary Disease-Associated Artery/Lesion type: [place] artery [place] vs. transplanted heart: [place] heart Associated angina: without angina Qualified Code(s): I25.10 - Atherosclerotic heart disease of [place] coronary artery without angina pectoris Assessment: No active ischemia (7) GERD (gastroesophageal reflux disease) Status: Acute Current Visit: Yes (8) Debility Status: Acute Current Visit: Yes Assessment: Continue PT/OT (9) Hypertension Status: Acute Current Visit: Yes Qualifiers: Hypertension type: essential hypertension Qualified Code(s): I10 - Essential (primary) hypertension Assessment: Well controlled
[2019-04-19] MEDS: ATORVASTATIN CALCIUM 20 MG TABLET PO SCH (19:47)
[2019-04-19] MEDS: MELATONIN 3 MG TABLET PO SCH (19:47)
[2019-04-19] MEDS: PRAMIPEXOLE DI-HCL 0.5 MG TABLET PO SCH (19:47)
[2019-04-19] MEDS: hydrOXYzine HCL 25 MG TABLET PO PRN (19:47)
[2019-04-19] MEDS: TIMOLOL MALEATE 0.5% OU SCH (19:48)
[2019-04-19] MEDS: LATANOPROST 0.005% OPTH DROP OU SCH (19:48)
[2019-04-19] MEDS: OPTH OU SCH (19:48)
[2019-04-20] MEDS: LEVOTHYROXINE SODIUM 50 MCG TABLET PO SCH (07:20)
[2019-04-20] MEDS: PANTOPRAZOLE SODIUM 40 MG TABLET.DR PO SCH (07:20)
[2019-04-20] MEDS: INSULIN ASPART 100 UNIT/ML INSULN.PEN SQ SCH ×4 (07:25→22:33)
[2019-04-20] MEDS: FLUTICASONE PROPIONATE 120 SPRAY/16 GR BOTTLE IEN SCH (08:58)
[2019-04-20] MEDS: ASPIRIN EC 81 MG TABLET.DR PO SCH (08:58)
[2019-04-20] MEDS: BISACODYL 5 MG TABLET.DR PO SCH (08:58)
[2019-04-20] MEDS: clonazePAM 0.5 MG TABLET PO SCH ×3 (08:58→22:27)
[2019-04-20] MEDS: TAMSULOSIN HCL 0.4 MG CAP.ER.24H PO SCH ×2 (08:58→22:26)
[2019-04-20] MEDS: busPIRone HCL 5 MG TABLET PO SCH ×2 (08:58→22:29)
[2019-04-20] MEDS: levETIRAcetam 500 MG TABLET PO SCH ×3 (08:58→18:44)
[2019-04-20] MEDS: CARVEDILOL 6.25 MG TABLET PO SCH ×2 (08:58→18:44)
[2019-04-20] MEDS: POLYETHYLENE GLYCOL 3350 17 GM POWD.PACK PO SCH (12:09)
[2019-04-20] MEDS: ACETAMINOPHEN 325 MG TABLET PO PRN ×2 (12:50→22:26)
[2019-04-20] MEDS: OPTH OU SCH (22:24)
[2019-04-20] MEDS: LATANOPROST 0.005% OPTH DROP OU SCH (22:24)
[2019-04-20] MEDS: TIMOLOL MALEATE 0.5% OU SCH (22:24)
[2019-04-20] MEDS: PRAMIPEXOLE DI-HCL 0.5 MG TABLET PO SCH (22:25)
[2019-04-20] MEDS: ATORVASTATIN CALCIUM 20 MG TABLET PO SCH (22:27)
[2019-04-20] MEDS: MELATONIN 3 MG TABLET PO SCH (22:27)
[2019-04-20] MEDS: hydrOXYzine HCL 25 MG TABLET PO PRN (22:29)
[2019-04-21] MEDS: ACETAMINOPHEN 325 MG TABLET PO PRN ×2 (04:39→20:05)
[2019-04-21] MEDS: LEVOTHYROXINE SODIUM 50 MCG TABLET PO SCH (06:16)
[2019-04-21] MEDS: PANTOPRAZOLE SODIUM 40 MG TABLET.DR PO SCH (06:16)
[2019-04-21] MEDS: INSULIN ASPART 100 UNIT/ML INSULN.PEN SQ SCH ×4 (07:10→20:16)
[2019-04-21] MEDS: busPIRone HCL 5 MG TABLET PO SCH ×2 (08:57→20:04)
[2019-04-21] MEDS: CARVEDILOL 6.25 MG TABLET PO SCH ×2 (08:57→18:05)
[2019-04-21] MEDS: BISACODYL 5 MG TABLET.DR PO SCH (08:57)
[2019-04-21] MEDS: levETIRAcetam 500 MG TABLET PO SCH ×3 (08:58→18:06)
[2019-04-21] MEDS: ASPIRIN EC 81 MG TABLET.DR PO SCH (08:58)
[2019-04-21] MEDS: TAMSULOSIN HCL 0.4 MG CAP.ER.24H PO SCH ×2 (08:58→20:04)
[2019-04-21] MEDS: clonazePAM 0.5 MG TABLET PO SCH ×3 (08:58→20:05)
[2019-04-21] MEDS: FLUTICASONE PROPIONATE 120 SPRAY/16 GR BOTTLE IEN SCH (08:58)
[2019-04-21] MEDS: POLYETHYLENE GLYCOL 3350 17 GM POWD.PACK PO SCH (10:12)
[2019-04-21] MEDS: hydrOXYzine HCL 25 MG TABLET PO PRN (20:01)
[2019-04-21] MEDS: MELATONIN 3 MG TABLET PO SCH (20:01)
[2019-04-21] MEDS: PRAMIPEXOLE DI-HCL 0.5 MG TABLET PO SCH (20:02)
[2019-04-21] MEDS: ATORVASTATIN CALCIUM 20 MG TABLET PO SCH (20:05)
[2019-04-21] MEDS: OPTH OU SCH (20:19)
[2019-04-21] MEDS: TIMOLOL MALEATE 0.5% OU SCH (20:19)
[2019-04-21] MEDS: LATANOPROST 0.005% OPTH DROP OU SCH (20:19)
[2019-04-22] MEDS: PANTOPRAZOLE SODIUM 40 MG TABLET.DR PO SCH (06:09)
[2019-04-22] MEDS: LEVOTHYROXINE SODIUM 50 MCG TABLET PO SCH (06:09)
[2019-04-22] MEDS: INSULIN ASPART 100 UNIT/ML INSULN.PEN SQ SCH ×4 (09:13→21:16)
[2019-04-22] MEDS: levETIRAcetam 500 MG TABLET PO SCH ×3 (09:24→17:04)
[2019-04-22] MEDS: ASPIRIN EC 81 MG TABLET.DR PO SCH (09:24)
[2019-04-22] MEDS: BISACODYL 5 MG TABLET.DR PO SCH (09:25)
[2019-04-22] MEDS: CARVEDILOL 6.25 MG TABLET PO SCH ×2 (09:25→17:05)
[2019-04-22] MEDS: busPIRone HCL 5 MG TABLET PO SCH ×2 (09:25→20:37)
[2019-04-22] MEDS: clonazePAM 0.5 MG TABLET PO SCH ×3 (09:29→21:17)
[2019-04-22] MEDS: TAMSULOSIN HCL 0.4 MG CAP.ER.24H PO SCH ×2 (09:29→20:39)
[2019-04-22] MEDS: FLUTICASONE PROPIONATE 120 SPRAY/16 GR BOTTLE IEN SCH (09:38)
[2019-04-22 10:10] LABS: APPEARANCE,URINE CLOUDY (CLEAR); COLOR,URINE RED (YELLOW); OCCULT BLOOD,URINE 3+ (NEGATIVE)
[2019-04-22] MEDS: POLYETHYLENE GLYCOL 3350 17 GM POWD.PACK PO SCH (11:45)
[2019-04-22] MEDS: ACETAMINOPHEN 325 MG TABLET PO PRN ×2 (13:24→20:40)
[2019-04-22] MEDS: ATORVASTATIN CALCIUM 20 MG TABLET PO SCH (20:37)
[2019-04-22] MEDS: PRAMIPEXOLE DI-HCL 0.5 MG TABLET PO SCH (20:38)
[2019-04-22] MEDS: TIMOLOL MALEATE 0.5% OU SCH (20:38)
[2019-04-22] MEDS: OPTH OU SCH (20:38)
[2019-04-22] MEDS: LATANOPROST 0.005% OPTH DROP OU SCH (20:39)
[2019-04-22] MEDS: hydrOXYzine HCL 25 MG TABLET PO PRN (20:40)
[2019-04-22] MEDS: MELATONIN 3 MG TABLET PO SCH (20:40)
[2019-04-23] MEDS: ACETAMINOPHEN 325 MG TABLET PO PRN ×4 (04:05→17:39)
[2019-04-23] MEDS: LEVOTHYROXINE SODIUM 50 MCG TABLET PO SCH (04:06)
[2019-04-23] MEDS: PANTOPRAZOLE SODIUM 40 MG TABLET.DR PO SCH (04:06)
[2019-04-23] MEDS: INSULIN ASPART 100 UNIT/ML INSULN.PEN SQ SCH ×4 (07:30→20:06)
[2019-04-23] MEDS: clonazePAM 0.5 MG TABLET PO SCH ×2 (09:00→14:26)
[2019-04-23] MEDS: POLYETHYLENE GLYCOL 3350 17 GM POWD.PACK PO SCH (09:00)
[2019-04-23] MEDS: ASPIRIN EC 81 MG TABLET.DR PO SCH (10:00)
[2019-04-23] MEDS: CARVEDILOL 6.25 MG TABLET PO SCH ×2 (10:00→16:57)
[2019-04-23] MEDS: levETIRAcetam 500 MG TABLET PO SCH ×3 (10:00→16:57)
[2019-04-23] MEDS: TAMSULOSIN HCL 0.4 MG CAP.ER.24H PO SCH ×2 (10:00→20:06)
[2019-04-23] MEDS: FLUTICASONE PROPIONATE 120 SPRAY/16 GR BOTTLE IEN SCH (10:00)
[2019-04-23] MEDS: busPIRone HCL 5 MG TABLET PO SCH ×2 (12:16→20:03)
[2019-04-23] MEDS: BISACODYL 5 MG TABLET.DR PO SCH (14:16)
[2019-04-23] MEDS: OPTH OU SCH (20:03)
[2019-04-23] MEDS: ATORVASTATIN CALCIUM 20 MG TABLET PO SCH (20:03)
[2019-04-23] MEDS: TIMOLOL MALEATE 0.5% OU SCH (20:03)
[2019-04-23] MEDS: PRAMIPEXOLE DI-HCL 0.5 MG TABLET PO SCH (20:03)
[2019-04-23] MEDS: LATANOPROST 0.005% OPTH DROP OU SCH (20:05)
[2019-04-23] MEDS: MELATONIN 3 MG TABLET PO SCH (20:06)
[2019-04-24] MEDS: CARVEDILOL 6.25 MG TABLET PO SCH ×2 (07:29→17:33)
[2019-04-24] MEDS: PANTOPRAZOLE SODIUM 40 MG TABLET.DR PO SCH (07:29)
[2019-04-24] MEDS: LEVOTHYROXINE SODIUM 50 MCG TABLET PO SCH (07:30)
[2019-04-24] MEDS: INSULIN ASPART 100 UNIT/ML INSULN.PEN SQ SCH ×4 (07:36→20:20)
[2019-04-24] MEDS: levETIRAcetam 500 MG TABLET PO SCH ×3 (08:20→17:33)
[2019-04-24] MEDS: BISACODYL 5 MG TABLET.DR PO SCH (08:20)
[2019-04-24] MEDS: FLUTICASONE PROPIONATE 120 SPRAY/16 GR BOTTLE IEN SCH (08:20)
[2019-04-24] MEDS: TAMSULOSIN HCL 0.4 MG CAP.ER.24H PO SCH ×2 (08:20→20:14)
[2019-04-24] MEDS: busPIRone HCL 5 MG TABLET PO SCH ×2 (08:20→20:14)
[2019-04-24] MEDS: ASPIRIN EC 81 MG TABLET.DR PO SCH (08:20)
[2019-04-24] MEDS: POLYETHYLENE GLYCOL 3350 17 GM POWD.PACK PO SCH (11:35)
[2019-04-24] MEDS: ACETAMINOPHEN 325 MG TABLET PO PRN ×2 (15:42→20:15)
[2019-04-24] MEDS: MELATONIN 3 MG TABLET PO SCH (20:13)
[2019-04-24] MEDS: PRAMIPEXOLE DI-HCL 0.5 MG TABLET PO SCH (20:14)
[2019-04-24] MEDS: hydrOXYzine HCL 25 MG TABLET PO PRN (20:14)
[2019-04-24] MEDS: ATORVASTATIN CALCIUM 20 MG TABLET PO SCH (20:14)
[2019-04-24] MEDS: LATANOPROST 0.005% OPTH DROP OU SCH (20:21)
[2019-04-24] MEDS: TIMOLOL MALEATE 0.5% OU SCH (20:22)
[2019-04-24] MEDS: OPTH OU SCH (20:22)
[2019-04-25] MEDS: ACETAMINOPHEN 325 MG TABLET PO PRN ×4 (06:02→21:07)
[2019-04-25] MEDS: PANTOPRAZOLE SODIUM 40 MG TABLET.DR PO SCH (06:02)
[2019-04-25] MEDS: LEVOTHYROXINE SODIUM 50 MCG TABLET PO SCH (06:03)
[2019-04-25] MEDS: INSULIN ASPART 100 UNIT/ML INSULN.PEN SQ SCH ×3 (07:32→16:32)
[2019-04-25] MEDS: CARVEDILOL 6.25 MG TABLET PO SCH ×2 (09:34→17:51)
[2019-04-25] MEDS: busPIRone HCL 5 MG TABLET PO SCH ×2 (09:34→21:07)
[2019-04-25] MEDS: BISACODYL 5 MG TABLET.DR PO SCH (09:34)
[2019-04-25] MEDS: TAMSULOSIN HCL 0.4 MG CAP.ER.24H PO SCH ×2 (09:35→21:07)
[2019-04-25] MEDS: levETIRAcetam 500 MG TABLET PO SCH ×3 (09:35→17:51)
[2019-04-25] MEDS: ASPIRIN EC 81 MG TABLET.DR PO SCH (09:35)
[2019-04-25] MEDS: FLUTICASONE PROPIONATE 120 SPRAY/16 GR BOTTLE IEN SCH (09:35)
[2019-04-25] MEDS: POLYETHYLENE GLYCOL 3350 17 GM POWD.PACK PO SCH (11:42)
[2019-04-25 14:14] LABS: eGFR (Non-African) 53
[2019-04-25] MEDS ORDERED: INSULIN ASPART 100 UNIT/ML INSULN.PEN SQ SCH (21:00)
[2019-04-25] MEDS: PRAMIPEXOLE DI-HCL 0.5 MG TABLET PO SCH (21:06)
[2019-04-25] MEDS: MELATONIN 3 MG TABLET PO SCH (21:06)
[2019-04-25] MEDS: ATORVASTATIN CALCIUM 20 MG TABLET PO SCH (21:07)
[2019-04-25] MEDS: LATANOPROST 0.005% OPTH DROP OU SCH (21:07)
[2019-04-25] MEDS: OPTH OU SCH (21:08)
[2019-04-25] MEDS: TIMOLOL MALEATE 0.5% OU SCH (21:08)
[2019-04-25] MEDS ORDERED: clonazePAM 0.5 MG TABLET PO ONE ×2 (21:20→22:06)
[2019-04-25] MEDS ORDERED: HALOPERIDOL LACTATE 5 MG/ML VIAL IM ONE ×2 (22:32→22:37)
[2019-04-26] MEDS ORDERED: LORazepam 2 MG/ML VIAL ONE (04:46)
[2019-04-26] MEDS ORDERED: LORazepam 2 MG/ML VIAL IV ONE (04:52)
[2019-04-26] MEDS ORDERED: HALOPERIDOL LACTATE 5 MG/ML VIAL IM ONE (04:55)
[2019-04-26] MEDS ORDERED: LORazepam 2 MG/ML VIAL IM ONE (05:13)
[2019-04-26] MEDS: PANTOPRAZOLE SODIUM 40 MG TABLET.DR PO SCH (05:57)
[2019-04-26] MEDS: LEVOTHYROXINE SODIUM 50 MCG TABLET PO SCH (05:57)
[2019-04-26] MEDS: CARVEDILOL 6.25 MG TABLET PO SCH ×4 (07:33→17:07)
[2019-04-26] MEDS ORDERED: INSULIN ASPART 100 UNIT/ML INSULN.PEN SQ SCH (09:00)
[2019-04-26] MEDS: TAMSULOSIN HCL 0.4 MG CAP.ER.24H PO SCH (09:26)
[2019-04-26] MEDS: BISACODYL 5 MG TABLET.DR PO SCH (09:26)
[2019-04-26] MEDS: ACETAMINOPHEN 325 MG TABLET PO PRN (09:26)
[2019-04-26] MEDS: busPIRone HCL 5 MG TABLET PO SCH (09:27)
[2019-04-26] MEDS: levETIRAcetam 500 MG TABLET PO SCH ×3 (09:27→17:07)
[2019-04-26] MEDS: FLUTICASONE PROPIONATE 120 SPRAY/16 GR BOTTLE IEN SCH (09:36)
[2019-04-26] MEDS: ASPIRIN EC 81 MG TABLET.DR PO SCH (09:36)
[2019-04-26 10:18] VITALS: BP 163/106
[2019-04-26] MEDS: POLYETHYLENE GLYCOL 3350 17 GM POWD.PACK PO SCH (11:50)
--- NOTE | 2019-04-26 18:06 | Discharge Summary ---
Discharge Summary - Discharge [facility] Admission Date: 04/04/19 Discharge Date: 04/26/19 Discharge To: Home Health History of Present Illness: This is an 88 year old male who was admitted to for skilled stay at [place]. He was admitted to [facility] on 03/30/19 due to acute abdominal pain and pancreatitis with concern for a biliary source. There was concern for cholecystitis, and general Surgery (Dr. Arce) was consulted to see if suki rgent or non emergent cholecystectomy was indicated. She felt that he would likely need cholecystectomy, however not during that hospitalization and he is to follow up in her office about six weeks after discharge for evaluation for possible cholecystectomy. CT abdomen showed peripancreatic stranding, as well as lab work showing an elevated lipase (<500) and amylase (<2000). EGD showed gastritic/esophagitis. He was treated conservatively, and his bowel was rested. His diet was able to be slowly increased, although he was very unsteady on his feet, and he was transferred to our facility for care on discharge for skilled care with a view toward returning to home with his on discharge. Condition at Discharge: Guarded Home Medications: Ambulatory Orders Medication Instructions Recorded Aspirin [Devin] 81 mg PO D 02/11/15 Latanoprost [Xalatan] 1 drop OU D 02/11/15 Levetiracetam 750 mg PO BID 02/11/15 Levothyroxine Sodium [Synthroid] 100 mcg PO D 02/11/15 Omeprazole 20 mg PO BID 02/11/15 Pramipexole Di-HCl [Mirapex] 1.5 mg PO D 02/11/15 Timolol Maleate/Pf [Timoptic 0.5% 1 drop OU D 02/11/15 Ocudose Drop] Acetaminophen [Tylenol] 650 mg PO Q4 PRN 04/04/19 Atorvastatin Calcium 40 mg PO DAILY 04/04/19 Bisacodyl 10 mg DAILY PRN 04/04/19 Bisacodyl [Laxative] 10 mg PO DAILY PRN 04/04/19 Buspirone HCl [Buspar] 10 mg PO BID 04/04/19 Carvedilol [Coreg] 3.125 mg PO BID 04/04/19 Fluticasone Propionate [Flonase 1 spray NS DAILY 04/04/19 Nasal [place]] Ipratropium/Albuterol Sulfate 1 vial NEB Q6 PRN 04/04/19 [Iprat-Albut 0.5-3(2.5) mg/3 ml] Pramipexole Di-HCl [Pramipexole ER] 3 mg PO HS 04/04/19 Tamsulosin HCl [Flomax] 0.4 mg PO DAILY 04/04/19 clonazePAM [Klonopin] 0.5 mg PO TID PRN 04/04/19 Consultations this Visit: Other (OT/PT) Procedures this Visit: Other ([place] Catheter placement) Allergies/Adverse Reactions: Allergies Allergy/AdvReac Type Severity Reaction Status Date / Time amlodipine Allergy Verified 04/04/19 14:45 Patient Problems: Current Active Problems Problem Status Onset Acute pancreatitis Acute Anxiety Acute CAD (coronary artery disease) Acute Chronic renal insufficiency, stage II (mild) Acute Debility Acute Diabetes mellitus Acute GERD (gastroesophageal reflux disease) Acute History of CVA (cerebrovascular accident) Acute Hypertension Acute Urinary retention Acute Hospital Course: His hospital courses was complicated by urinary retention, necessitating placement of a urinary catheter, which he demanded be removed. He was very agitated at times, did not sleep and became very disoriented on occasion during this hospital stay. We could not procure a geriatric psych bed, and the nursing homes in the area did not feel like they could meet his needs. The family wanted to at least give him a trial of going home on discharge before immediately looking for terminal make up operator placement, so he will go home this evening with his family there and buddhist monk in the home also.
== END 2019-04-26 19:00 | disposition home health service (06) | DRG 947 ==
LOC: SOUTH 14:42
PROVIDERS: ADMIT Family Medicine; ATTEND Family Medicine
DX: R53.81 Other malaise (principal); K85.90 Acute pancreatitis without necrosis or infection, unspecified; I25.10 Atherosclerotic heart disease of native coronary artery without angina pectoris; E78.5 Hyperlipidemia, unspecified; E11.42 Type 2 diabetes mellitus with diabetic polyneuropathy; K21.9 Gastro-esophageal reflux disease without esophagitis; F32.9 Major depressive disorder, single episode, unspecified; F41.9 Anxiety disorder, unspecified; M19.90 Unspecified osteoarthritis, unspecified site; I12.9 Hypertensive chronic kidney disease with stage 1 through stage 4 chronic kidney disease, or unspecified chronic kidney disease; E11.22 Type 2 diabetes mellitus with diabetic chronic kidney disease; N18.2 Chronic kidney disease, stage 2 (mild); R33.9 Retention of urine, unspecified; I69.211 Memory deficit following other nontraumatic intracranial hemorrhage; E03.9 Hypothyroidism, unspecified; E66.9 Obesity, unspecified; Z95.5 Presence of coronary angioplasty implant and graft; Z95.0 Presence of cardiac pacemaker; Z96.653 Presence of artificial knee joint, bilateral; Z88.8 Allergy status to other drugs, medicaments and biological substances; Z79.51 Long term (current) use of inhaled steroids; Z79.899 Other long term (current) drug therapy; Z90.79 Acquired absence of other genital organ(s); Z79.82 Long term (current) use of aspirin; Z79.890 Hormone replacement therapy; Z68.37 Body mass index [BMI] 37.0-37.9, adult
CPT/HCPCS: 36415; 80053; 81002; 83690; 85025; 85027; 87086; 94640; 94760; 97110; 97112; 97116; 97161; 97165; 97530; 97535; A9270; J1630; J1815; J2060; 99221; 99231; 99238

== ENCOUNTER 2019-05-10 08:39 | Outpatient (CLI) | payer MEDICARE, OTHER ==
[2019-05-10 09:29] LABS: APPEARANCE,URINE CLEAR (CLEAR); COLOR,URINE YELLOW (YELLOW); OCCULT BLOOD,URINE NEGATIVE (NEGATIVE); PH URINE 5.5 (5.0 - 8.0); UROBILINOGEN URINE >=8.0 Eu (0.2-1.0)
== END 2019-05-10 09:45 ==
LOC: LAB 08:39
PROVIDERS: ATTEND Family Medicine
DX: I11.0 Hypertensive heart disease with heart failure (principal); E03.9 Hypothyroidism, unspecified; R32 Unspecified urinary incontinence; C61 Malignant neoplasm of prostate; E66.9 Obesity, unspecified; I50.9 Heart failure, unspecified; G40.909 Epilepsy, unspecified, not intractable, without status epilepticus; I48.91 Unspecified atrial fibrillation; K21.9 Gastro-esophageal reflux disease without esophagitis; I63.9 Cerebral infarction, unspecified; I21.4 Non-ST elevation (NSTEMI) myocardial infarction; F32.9 Major depressive disorder, single episode, unspecified
CPT/HCPCS: 81002; 87086

== ENCOUNTER 2019-05-13 09:00 | Outpatient (CLI) | payer MEDICARE, OTHER ==
[2019-05-31 17:43] LABS: HDL 31 mg/dL (>40); eGFR (Non-African) > 60
[2019-05-31 17:44] LABS: BASOPHILS % 0.7 % (0.0-1.5); NEUTROPHILS # 4.3 # k/uL (1.4-7.7)
== END 2019-05-13 09:10 ==
LOC: LAB 09:00
PROVIDERS: ATTEND Family Medicine
DX: I10 Essential (primary) hypertension (principal); E03.9 Hypothyroidism, unspecified; E78.5 Hyperlipidemia, unspecified
CPT/HCPCS: 36415; 80053; 80061; 80177; 84443; 85025; P9604

== ENCOUNTER 2019-05-31 16:25 | Outpatient (CLI) | payer MEDICARE, OTHER ==
[2019-05-31 16:51] LABS: eGFR (Non-African) 51
[2019-06-03 14:38] LABS: BASOPHILS % 0.3 % (0.0-1.5); NEUTROPHILS # 6.3 # k/uL (1.4-7.7)
== END 2019-05-31 16:30 ==
LOC: LAB 16:25
PROVIDERS: ATTEND Family Medicine
DX: I13.0 Hypertensive heart and chronic kidney disease with heart failure and stage 1 through stage 4 chronic kidney disease, or unspecified chronic kidney disease (principal); N18.3 Chronic kidney disease, stage 3 (moderate); I50.9 Heart failure, unspecified
CPT/HCPCS: 36415; 80053; 82306; 82607; 83921; P9604; 84425; 85025

== ENCOUNTER 2019-06-09 07:00 | Outpatient (CLI) | payer MEDICARE, OTHER ==
[2019-06-09 08:32] LABS: TSH 1.95 mIU/l (0.465-4.685)
== END 2019-06-09 07:05 ==
LOC: LAB 07:00
PROVIDERS: ATTEND Family Medicine
DX: E03.9 Hypothyroidism, unspecified (principal); I48.91 Unspecified atrial fibrillation; I50.9 Heart failure, unspecified; G93.40 Encephalopathy, unspecified; R65.20 Severe sepsis without septic shock
CPT/HCPCS: 36415; 80061; 80177; 84443; 84591; 86703; 86780; P9604

== ENCOUNTER 2019-06-30 06:52 | Outpatient (CLI) | payer MEDICARE, OTHER ==
[2019-06-30 07:20] LABS: BASOPHILS % 0.3 % (0.0-1.5)
[2019-06-30 07:39] LABS: eGFR (Non-African) 59
[2019-06-30 07:40] LABS: HDL 29 mg/dL (>40)
[2019-06-30 07:45] LABS: A1C 5.5 % (<5.7)
== END 2019-06-30 06:57 ==
LOC: LAB 06:52
PROVIDERS: ATTEND Family Medicine
DX: I11.0 Hypertensive heart disease with heart failure (principal); I50.9 Heart failure, unspecified; E11.9 Type 2 diabetes mellitus without complications
CPT/HCPCS: 36415; 80053; 80061; 83036; 85025; P9604